=== PATIENT | male | born 1990 | race African-American/Black ===

== ENCOUNTER 2018-07-11 20:38 | Emergency (ER) | payer OTHER, BC ==
--- NOTE | 2018-07-11 20:57 | Emergency Department Report ---
Blank Doc - Documentation Documentation: C/O right thumb injury 3 hours ago. Painful. This initial assessment diagnostic orders/clinical plan/treatment (s) is/Are subject change based on patient's health status, clinical progression and re- assessment by fellow clinical providers in the ED. Further treatment and work-up at subsequent clinical providers discretion. Patient/guardians urged not to elope from their condition may be serious if not clinically assessed and managed. Initial order include:
[2018-07-11 20:58] VITALS: BP 116/72
--- NOTE | 2018-07-11 22:02 | XRay Report ---
PROCEDURE: XR HAND 2V RT TECHNIQUE: 2 views of the right hand HISTORY: right thumb crushed COMPARISONS: No priors FINDINGS: Fracture of the distal tuft of the distal phalanx of the thumb. No significant displacement or angulation of bony fragments. No involvement of the interphalangeal joint. IMPRESSION: Fracture of the distal tuft of the distal phalanx of the thumb.. This document is electronically signed by Fredy Vargas MD., July 11 2018 09:59:56 PM ET
[2018-07-11] MEDS ORDERED: PERCOCET 5/325 PO STA (22:17)
--- NOTE | 2018-07-11 22:23 | Emergency Department Report ---
ED Extremity Problem HPI - General Chief complaint: Extremity Injury, Upper Stated complaint: MACHINE AT WORK SMASHED RT HAND Time Seen by Provider: 07/11/18 22:05 Source: patient, license issuer (girlfriend served as license issuer) Mode of arrival: Ambulatory Limitations: No Limitations - History of Present Illness Initial comments: 27-year-old male was at work using a compression type of machine with subsequently, he accidentally left his thumb in the area of the crushing mechanism resulting in a crushing injury to his right thumb. This resulted in dull throbbing pain and swelling in the elbow of the thumb. MD Complaint: extremity pain, extremity swelling -: hour(s) (5) Location: right History of Same: Yes Radiation: none Severity scale (0 -10): 10 Quality: dull, constant Consistency: constant Improves with: nothing Worsens with: nothing Associated Symptoms: denies other symptoms - Related Data Previous Rx's Medication Instructions Recorded Last Taken Type Acetaminophen/Codeine [Tylenol 1 tab PO Q6H PRN #14 tab 07/11/18 Unknown Rx /Codeine # 3 tab] Allergies Allergy/AdvReac Type Severity Reaction Status Date / Time No Known Allergies Allergy Unverified 07/11/18 20:42 ED Review of Systems ROS: Stated complaint: MACHINE AT WORK SMASHED RT HAND Other details as noted in HPI Constitutional: denies: chills, fever Eyes: denies: eye pain, eye discharge, vision change ENT: denies: ear pain, throat pain Respiratory: denies: cough, shortness of breath, wheezing Cardiovascular: denies: chest pain, palpitations Endocrine: no symptoms reported Gastrointestinal: denies: abdominal pain, nausea, diarrhea Genitourinary: denies: urgency, dysuria Musculoskeletal: joint swelling. denies: back pain, arthralgia Skin: denies: rash, lesions Neurological: denies: headache, weakness, paresthesias Psychiatric: denies: anxiety, depression Hematological/Lymphatic: denies: easy bleeding, easy bruising ED Past Medical Hx - Past Medical History Previous Medical History?: No - Surgical History Past Surgical History?: No - Social History Smoking Status: Current Every Day Smoker Substance Use Type: None - Medications Home Medications: Home Medications Medication Instructions Recorded Confirmed Last Taken Type Acetaminophen/Codeine [Tylenol 1 tab PO Q6H PRN #14 tab 07/11/18 Unknown Rx /Codeine # 3 tab] ED Physical Exam - General Limitations: No Limitations General appearance: alert, in no apparent distress - Head Head exam: Present: atraumatic, normocephalic - Eye Eye exam: Present: normal appearance, PERRL, EOMI Pupils: Present: normal accommodation - ENT ENT exam: Present: normal exam, mucous membranes moist - Neck Neck exam: Present: normal inspection, full ROM. Absent: tenderness, lymphadenopathy - Respiratory Respiratory exam: Present: normal lung sounds bilaterally. Absent: respiratory distress, wheezes, rales - Cardiovascular Cardiovascular Exam: Present: regular rate, normal rhythm. Absent: systolic murmur, diastolic murmur, rubs, gallop - GI/Abdominal GI/Abdominal exam: Present: soft, normal bowel sounds - Rectal Rectal exam: Present: deferred - Extremities Exam Extremities exam: Present: normal inspection - Expanded Upper Extremity Exam Right Forearm Wrist exam: Present: normal inspection, full ROM Hand Wrist exam: Present: tenderness, swelling, ecchymosis Hand L/R Back: 1 - Swelling to the pad of the finger with some ecchymosis noted. Also a partial area of subungual hematomas noted. There is pain with flexion of the area. No tenderness to the snuffbox. No tenderness to the thenar eminence Vascular: Present: normal capillary refill - Back Exam Back exam: Present: normal inspection - Neurological Exam Neurological exam: Present: alert, oriented X3, CN II-XII intact - Psychiatric Psychiatric exam: Present: normal affect, normal mood - Skin Skin exam: Present: warm, dry, intact, normal color. Absent: rash ED Course Vital Signs 07/11/18 20:56 Temperature 97.7 F Pulse Rate 82 Respiratory 18 Rate Blood Pressure 116/72 O2 Sat by Pulse 96 Oximetry Critical care attestation.: If time is entered above; I have spent that time in minutes in the direct care of this critically ill patient, excluding procedure time. ED Disposition Clinical Impression: Closed fracture of tuft of distal phalanx of finger, Closed fracture of tuft of distal phalanx of thumb Disposition: TO HOME OR SELFCARE Is pt being admited?: No Does the pt Need Aspirin: No Condition: Stable Instructions: Finger Fracture (ED) Prescriptions: Acetaminophen/Codeine [Tylenol /Codeine # 3 tab] 1 tab PO Q6H PRN #14 tab PRN Reason: Pain, Moderate (4-6) Referrals: MARLON ZAMORA MD [Primary Care Provider] - 3-5 Days FILIPE FAULKNER MD [Staff Physician] - 3-5 Days
== END 2018-07-11 22:41 | disposition home or self-care (01) ==
LOC: ED 20:38
DX: S62.521A Displaced fracture of distal phalanx of right thumb, initial encounter for closed fracture (principal); F17.200 Nicotine dependence, unspecified, uncomplicated; W31.89XA Contact with other specified machinery, initial encounter; Y93.89 Activity, other specified; Y99.0 Civilian activity done for income or pay; Y92.69 Other specified industrial and construction area as the place of occurrence of the external cause